=== PATIENT | female | born 1965 | race Two or more races ===

== ENCOUNTER → 2024-10-23 | Outpatient (CLI) | payer OTHER ==
--- NOTE | 2024-10-24 14:18 | DVH ---
Procedure: NM PARATHYROID Exam Date: 10/23/2024 08:58 AM. Clinical History: HYPERPARATHYROID Comparison Study: None. Nuclear Medicine Parathyroid Scan. Technique: Following the intravenous injection of 20 mCi of the Technetium 99m Sestamibi, images of the neck wer e obtained in multiple projections , immediately and after a two hour delay. Findings: There is the expected physiologic distribution of radiopharmaceutical. There is no abnormal focus of increased uptake to suggest a parathyroid adenoma in the neck. Impression: No scintigraphic evidence for parathyroid adenoma in the neck.
== END | disposition home or self-care (01) ==
LOC: XYW 07:48
PROVIDERS: ATTEND Internal Medicine
DX: E21.3 Hyperparathyroidism, unspecified (principal)
CPT/HCPCS: 78070; A9500

== ENCOUNTER → 2024-12-08 | Outpatient (CLI) | payer OTHER | END | disposition home or self-care (01) | LOC: LAB 09:25 | PROVIDERS: ATTEND Internal Medicine | DX: E21.3 Hyperparathyroidism, unspecified (principal); R73.03 Prediabetes | CPT/HCPCS: 36415; 82306; 82310; 83970 ==

== ENCOUNTER → 2024-12-11 | Outpatient (CLI) | payer OTHER | END | disposition home or self-care (01) | LOC: LAB 13:37 | PROVIDERS: ATTEND Internal Medicine | DX: E21.3 Hyperparathyroidism, unspecified (principal); R73.03 Prediabetes | CPT/HCPCS: 82270 ==

== ENCOUNTER 2025-08-22 09:12 | Outpatient (CLI) | payer OTHER ==
[2025-08-22 10:06] LABS: Triglycerides 86 mg/dL (< 150)
[2025-08-22 10:08] LABS: Cholesterol 156 mg/dL (< 200); HDL Cholesterol 52 mg/dL (40-59)
== END 2025-08-22 17:00 | disposition home or self-care (01) ==
LOC: LAB 09:12
PROVIDERS: ATTEND Internal Medicine
DX: E78.5 Hyperlipidemia, unspecified (principal); R73.03 Prediabetes
CPT/HCPCS: 36415; 80061; 83036